=== PATIENT | male | born 2000 | race Caucasian/White ===

== ENCOUNTER → 2023-06-24 11:44 | Outpatient (CLI) | payer BC, SELFPAY ==
--- NOTE | ~2023-06-24 | US_ITS ---
EXAMINATION: US soft tissue UE LT DATE: 06/24/2023 12:06 INDICATION: Left hand mass for 10 years with pain. TECHNIQUE: Multiple grayscale and Doppler ultrasound images of the left hand were obtained. COMPARISON: None FINDINGS: In the posterior hand between the first and second metacarpals, there is a 2.6 x 0.5 x 2.4 cm anechoic and hypoechoic mass. IMPRESSION: 1. 2.6 x 0.5 x 2.4 cm cystic mass in the dorsum of the hand, most likely a ganglion cyst. Reviewed, dictated and finalized at location B. IMPRESSION: 1. 2.6 x 0.5 x 2.4 cm cystic mass in the dorsum of the hand, most likely a gang lion cyst.
== END ==
PROVIDERS: PCP Nurse Practitioner; Visit Provider Nurse Practitioner
DX: R22.32 Localized swelling, mass and lump, left upper limb (principal)
CPT/HCPCS: 76882